=== PATIENT | female | born 1985 | race American Indian/Alaskan Native ===

== ENCOUNTER 2021-03-07 07:56 | Outpatient (CLI) | payer OTHER | END 2021-03-07 08:45 | disposition home or self-care (01) | LOC: NST 07:56 | PROVIDERS: ATTEND Obstetrics & Gynecology | DX: Z34.83 Encounter for supervision of other normal pregnancy, third trimester (principal) ==

== ENCOUNTER 2021-03-30 21:09 | Inpatient (IN) | payer OTHER ==
[~2021-03-30] VITALS: Ht 147.3 cm; Wt 60.8 kg
[2021-03-31] MEDS ORDERED: PRENATAL CAPLE1 EAC1 PO (06:42)
[2021-03-31] MEDS ORDERED: ASPIRIN81 MG PO (06:42)
== END 2021-04-03 13:20 | disposition home or self-care (01) | DRG 786 ==
LOC: OBS/DEL 21:09 → LDR 03-31 03:49 → SURG-SUITE 03-31 03:49 → O/R 03-31 09:16 → SURG-SUITE 03-31 11:12
PROVIDERS: Obstetrics & Gynecology; ADMIT Obstetrics & Gynecology; ATTEND Obstetrics & Gynecology
PROC: 4A1HXFZ Monitoring of Products of Conception, Cardiac Rhythm, External Approach (ICD-10-PCS; 2021-03-31)
PROC: 30233N1 Transfusion of Nonautologous Red Blood Cells into Peripheral Vein, Percutaneous Approach (ICD-10-PCS; 2021-03-31)
PROC: 10D00Z1 Extraction of Products of Conception, Low, Open Approach (ICD-10-PCS; principal; 2021-03-31 04:15)
DX: O34.211 Maternal care for low transverse scar from previous cesarean delivery (principal); O60.14X0 Preterm labor third trimester with preterm delivery third trimester, not applicable or unspecified; O10.02 Pre-existing essential hypertension complicating childbirth; Z3A.35 35 weeks gestation of pregnancy; Z37.0 Single live birth; Z53.29 Procedure and treatment not carried out because of patient's decision for other reasons